=== PATIENT | female | born 1950 | race Caucasian/White ===

== ENCOUNTER 2018-03-08 14:56 | Day surgery (SDC) | payer MEDICARE, SELFPAY ==
[2018-03-02 12:40] VITALS: BMI 36.9
[2018-03-08] VITALS (8 sets, daily range): BP systolic 128–148; BP diastolic 38–91; PULSE 72–79; RESP 10–18; TEMP 36.2–36.7; O2SAT 96–99; BMI 36.9
[2018-03-08] MEDS: LACTATED RINGERS 1,000 ML 42 ML IV (16:32)
--- NOTE | 2018-03-08 17:25 | PM.PREOP ---
Pre-operative Note Interval Note Pre-op Check: Yes History & Physical Reviewed by Physician and Yes Exam Performed Changes: No
--- NOTE | 2018-03-08 17:27 | PM.OP.1 ---
Operative Date/Time/Diagnoses Date of procedure: 03/08/18 Time of procedure: 18:16 Pre-op diagnosis: Medial meniscal tear left knee Mild osteoarthritis left knee Post-op diagnosis: same Procedure & Clinicians Procedure: Left knee arthroscopy with partial medial meniscectomy Same procedure as scheduled: Yes Indications: The patient presents today for knee arthroscopy. The nature of the procedure including the risks and benefits, alternatives, postoperative course and expected outcome were discussed and all questions answered. Consent was obtained. Operative site confirmed and marked. Surgeon: Steve Segovia Click Yes if Unassisted: Yes Anesthesia Type: General and Local Operative Notes Findings: Examination anesthesia was unremarkable. Arthroscopic evaluation revealed complex tearing of the midbody to posterior horn of the medial meniscus. This was trimmed to a stable rim with a basket and shaver. 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 The lateral compartment and patellofemoral compartments were unremarkable. ACL and PCL were intact. Closure Type: primary Specimen(s): none sent Estimated Blood Loss (mL): 2 Blood products transfused: none Tourniquet time (min): 11 Procedure in detail: The patient was taken to the operative suite and given prophylactic antibiotics. Examination under anesthesia was performed. The leg was then prepped and draped in usual sterile fashion. The leg was exsanguinated with an Esmarch dressing and the tourniquet raised to 300 torr. The portal sites were anesthetized with 1% lidocaine with epinephrine and then established with an 11 blade. Medial and lateral parapatellar working portals were utilized. The scope was placed into the medial portal and into the lateral compartment of the knee. The knee was placed in the figure 4 position. The knee was then allowed to hang down at 90? and the notch evaluated. The knee was then extended and the scope switched to the lateral portal and placed up in the anterior compartment. The patellofemoral joint, medial gutter, lateral gutter and suprapatellar pouch were inspected. A valgus force was then placed across the knee over lateral stress post and the medial compartment was evaluated. See specific findings and procedures above. The arthroscopy was completed and the knee drained. The knee was filled with 30 mL of 0.5% ropivacaine and 4 of morphine. The portal sites were closed with Steri-Strips. A sterile gauze and Aj wrap dressing was applied. The patient tolerated procedure well and was returned to recovery room in good condition. Condition: stable Disposition: same day surgery Plan for aftercare: May progress activity weightbearing as tolerated. Follow up in 2 weeks.
[2018-03-08] MEDS: CEFAZOLIN 2 GM/100 ML FROZ.PIGGY IV (17:30)
--- NOTE | 2018-03-08 18:28 | SUR.OPER ---
Supine on padded OR bed, head on pillow, arms secured on padded arm boards at <90 degrees abduction, legs uncrossed, safety belt at thigh, tape over blanket over lower legs.tucker leg hanson in place under drapes for positioning operative leg
[2018-03-08] MEDS: LIDOCAINE 1% W/EPI INJ 20 ML INJ (18:34)
[2018-03-08] MEDS: ROPIVACAINE 0.5% PF 5 MG/ML 20ML AMP 10 ML INJ (18:35)
[2018-03-08] MEDS: HYDROCODONE/ACET 5/325 TABLET 1 TAB PO (19:00)
--- NOTE | 2018-03-08 19:34 | SUR.PHASEII ---
friends brought in, d/c instructiin
--- NOTE | 2018-03-08 19:34 | SUR.PHASEII ---
friend/sister brought in, d/c instructions discussed, all voiced an understanding. pt dressed when ready to go and left in stable condition.
== END 2018-03-08 19:20 | disposition home or self-care (01) ==
PROVIDERS: PCP Nurse Practitioner; Visit Provider Orthopaedic Surgery
PROC: (CPT 29870; principal; 2018-03-08 16:15)
DX: S83.242A Other tear of medial meniscus, current injury, left knee, initial encounter (principal); M17.12 Unilateral primary osteoarthritis, left knee; E03.9 Hypothyroidism, unspecified; G47.33 Obstructive sleep apnea (adult) (pediatric); M94.262 Chondromalacia, left knee
CPT/HCPCS: 29881; J0690; J1100; J1885; J2405; J2704; J2795; J3010